=== PATIENT | male | born 1985 | race African-American/Black ===

== ENCOUNTER 2019-04-05 12:54 | Emergency (ER) | payer OTHER ==
[~2019-04-05] VITALS: Ht 190.5 cm; Wt 220.9 kg
[2019-04-05 13:13] VITALS: BP 147/92; Ht 190.5 cm; Wt 220.9 kg
== END 2019-04-05 16:32 | disposition home or self-care (01) ==
LOC: ED 12:54
DX: L03.116 Cellulitis of left lower limb (principal)

== ENCOUNTER 2019-10-08 20:15 | Inpatient (IN) | payer OTHER, SELFPAY ==
[~2019-10-08] VITALS: Ht 188 cm; Wt 171.5 kg
[2019-10-08 20:26] VITALS: Ht 188 cm; Wt 171.5 kg
[2019-10-08 21:09] LABS: CALCIUM 7.6 mg/dL (8.5-10.1); CARBON DIOXIDE 31.2 mmol/L (21-32); CHLORIDE SERUM 97 mmol/L (98-107); CREATININE SERUM 1.3 mg/dL (0.7-1.3); GFR1 > 60 mL/min; GLUCOSE SERUM 92 mg/dL (74-106); POTASSIUM SERUM 3.2 mmol/L (3.5-5.1); SODIUM SERUM 134 mmol/L (136-145)
[2019-10-08 21:14] LABS: ALKALINE PHOSPHATASE 25 U/L (46-116); ALT/SGPT 25 U/L (16-63); AST/SGOT 27 U/L (15-37); BILIRUBIN TOTAL 0.4 mg/dL (0.20-1.00); C REACTIVE PROTEIN 9.9 mg/dL (<=0.9); LACTIC DEHYDROGENASE (LDH) 379 U/L (100-190)
[2019-10-08 21:16] LABS: BASOPHIL % 0.3 % (0-2); PLATELET COUNT 131 x10^3mcL (130-400); RED CELL DISTRIBUTION WIDTH 14.1 % (11.5-14.5)
[2019-10-09 01:05] LABS: UA SPECIFIC GRAVITY >=1.030 (1.005-1.035); microscopic required? YES; urine erythrocyte NEGATIVE (NEGATIVE)
[2019-10-09 02:10] VITALS: BP 133/75
[2019-10-09 03:09] LABS: MAGNESIUM 1.9 mg/dL (1.8-2.4)
[2019-10-09 05:38] VITALS: BP 135/78
[2019-10-09 07:53] LABS: CALCIUM 7.8 mg/dL (8.5-10.1); CARBON DIOXIDE 30.7 mmol/L (21-32); CHLORIDE SERUM 96 mmol/L (98-107); GFR1 > 60 mL/min; GLUCOSE SERUM 132 mg/dL (74-106); PHOSPHOROUS 3.5 mg/dL (2.5-4.9); POTASSIUM SERUM 4.1 mmol/L (3.5-5.1); SODIUM SERUM 133 mmol/L (136-145)
[2019-10-09 07:58] LABS: BASOPHIL % 0.2 % (0-2); PLATELET COUNT 134 x10^3mcL (130-400)
[2019-10-09 09:31] VITALS: BP 123/80
[2019-10-09 13:06] VITALS: BP 118/76
[2019-10-09 17:45] VITALS: BP 114/75
[2019-10-09 20:48] VITALS: BP 122/69
[2019-10-10 06:06] VITALS: BP 140/77
[2019-10-10 07:16] LABS: PLATELET COUNT 164 x10^3mcL (130-400)
[2019-10-10 07:23] LABS: BASOPHIL % 0 % (0-2)
[2019-10-10 07:30] LABS: CALCIUM 8.2 mg/dL (8.5-10.1); CARBON DIOXIDE 34.6 mmol/L (21-32); CHLORIDE SERUM 99 mmol/L (98-107); GFR1 > 60 mL/min; GLUCOSE SERUM 115 mg/dL (74-106); MAGNESIUM 2.4 mg/dL (1.8-2.4); PHOSPHOROUS 2.3 mg/dL (2.5-4.9); POTASSIUM SERUM 3.8 mmol/L (3.5-5.1); SODIUM SERUM 139 mmol/L (136-145)
[2019-10-10 09:23] VITALS: BP 129/74
[2019-10-10 14:05] VITALS: BP 122/69
[2019-10-10 17:27] VITALS: BP 105/67
[2019-10-10 21:15] VITALS: BP 129/79
[2019-10-10 22:22] LABS: ALKALINE PHOSPHATASE 24 U/L (46-116); ALT/SGPT 21 U/L (16-63); AST/SGOT 16 U/L (15-37); CARBON DIOXIDE 35.8 mmol/L (21-32); CHLORIDE SERUM 98 mmol/L (98-107); CREATININE SERUM 1.1 mg/dL (0.7-1.3); GFR1 > 60 mL/min; GLUCOSE SERUM 118 mg/dL (74-106); POTASSIUM SERUM 4.3 mmol/L (3.5-5.1); SODIUM SERUM 137 mmol/L (136-145); TOTAL PROTEIN, SERUM 7.9 g/dL (6.4-8.2)
[2019-10-10 22:26] LABS: ALBUMIN 2.6 g/dL (3.4-5.0)
[2019-10-11 05:08] VITALS: BP 122/47
[2019-10-11 07:22] LABS: CALCIUM 8.2 mg/dL (8.5-10.1); CARBON DIOXIDE 33.6 mmol/L (21-32); CHLORIDE SERUM 98 mmol/L (98-107); CREATININE SERUM 1.1 mg/dL (0.7-1.3); GFR1 > 60 mL/min; GLUCOSE SERUM 113 mg/dL (74-106); MAGNESIUM 2.4 mg/dL (1.8-2.4); PHOSPHOROUS 2.2 mg/dL (2.5-4.9); SODIUM SERUM 137 mmol/L (136-145)
[2019-10-11 07:30] LABS: PLATELET COUNT 167 x10^3mcL (130-400); RED CELL DISTRIBUTION WIDTH 13.9 % (11.5-14.5)
[2019-10-11 08:09] LABS: BASOPHIL % 0 % (0-2)
[2019-10-11 08:59] VITALS: BP 138/66
[2019-10-11 10:01] LABS: ALT/SGPT 22 U/L (16-63); AST/SGOT 23 U/L (15-37)
[2019-10-11 12:40] VITALS: BP 151/79
[2019-10-11 17:26] VITALS: BP 115/59
[2019-10-11 21:10] VITALS: BP 117/64
[2019-10-12 06:00] VITALS: BP 94/64
[2019-10-12 07:15] LABS: PLATELET COUNT 175 x10^3mcL (130-400); RED CELL DISTRIBUTION WIDTH 14.5 % (11.5-14.5)
[2019-10-12 08:13] LABS: ALKALINE PHOSPHATASE 28 U/L (46-116); ALT/SGPT 22 U/L (16-63); AST/SGOT 24 U/L (15-37); BILIRUBIN DIRECT 0.14 mg/dL (0.0-0.2); BILIRUBIN TOTAL 0.3 mg/dL (0.20-1.00); CALCIUM 8.2 mg/dL (8.5-10.1); CARBON DIOXIDE 36.3 mmol/L (21-32); CHLORIDE SERUM 98 mmol/L (98-107); CREATININE SERUM 0.9 mg/dL (0.7-1.3); GFR1 > 60 mL/min; GLUCOSE SERUM 118 mg/dL (74-106); MAGNESIUM 2.4 mg/dL (1.8-2.4); PHOSPHOROUS 3.1 mg/dL (2.5-4.9); POTASSIUM SERUM 4.3 mmol/L (3.5-5.1); SODIUM SERUM 137 mmol/L (136-145); TOTAL PROTEIN, SERUM 7.7 g/dL (6.4-8.2)
[2019-10-12 08:28] LABS: ALBUMIN 2.3 g/dL (3.4-5.0)
[2019-10-12 08:30] VITALS: BP 121/66
[2019-10-12 12:10] VITALS: BP 130/84
[2019-10-12 12:19] LABS: SEGMENTED NEUTROPHILS 83 % (37-75)
[2019-10-12 12:20] LABS: BAND NEUTROPHIL 3 % (0-10); MONOCYTE 5 % (0-7); rbc morphology (normal/abnorm) ABNORMAL (NORMAL)
[2019-10-12 15:57] VITALS: BP 124/58
[2019-10-12 20:48] VITALS: BP 126/88
[2019-10-13 05:14] VITALS: BP 119/60
[2019-10-13 08:20] LABS: ALKALINE PHOSPHATASE 30 U/L (46-116); ALT/SGPT 21 U/L (16-63); AST/SGOT 21 U/L (15-37); BILIRUBIN DIRECT 0.13 mg/dL (0.0-0.2); BILIRUBIN TOTAL 0.3 mg/dL (0.20-1.00); CALCIUM 8.3 mg/dL (8.5-10.1); CARBON DIOXIDE 36.6 mmol/L (21-32); CHLORIDE SERUM 100 mmol/L (98-107); CREATININE SERUM 0.9 mg/dL (0.7-1.3); GFR1 > 60 mL/min; GLUCOSE SERUM 115 mg/dL (74-106); POTASSIUM SERUM 4.4 mmol/L (3.5-5.1); SODIUM SERUM 139 mmol/L (136-145); TOTAL PROTEIN, SERUM 7.9 g/dL (6.4-8.2)
[2019-10-13 08:28] LABS: ALBUMIN 2.4 g/dL (3.4-5.0)
[2019-10-13 08:37] LABS: BASOPHIL % 1.7 % (0-2); PLATELET COUNT 175 x10^3mcL (130-400)
[2019-10-13 09:31] VITALS: BP 110/58
[2019-10-13 13:51] VITALS: BP 115/53
[2019-10-13 17:39] VITALS: BP 100/58
[2019-10-13 21:44] VITALS: BP 115/50
[2019-10-14 06:19] VITALS: BP 108/64
[2019-10-14 07:07] LABS: PLATELET COUNT 232 x10^3mcL (130-400); RED CELL DISTRIBUTION WIDTH 14.4 % (11.5-14.5)
[2019-10-14 07:10] LABS: ALBUMIN 2.5 g/dL (3.4-5.0); BILIRUBIN DIRECT 0.11 mg/dL (0.0-0.2); BILIRUBIN TOTAL 0.3 mg/dL (0.20-1.00); TOTAL PROTEIN, SERUM 7.7 g/dL (6.4-8.2)
[2019-10-14 07:15] LABS: BASOPHIL % 0 % (0-2)
[2019-10-14 07:19] LABS: CALCIUM 8.5 mg/dL (8.5-10.1); CARBON DIOXIDE 37.2 mmol/L (21-32); CHLORIDE SERUM 103 mmol/L (98-107); CREATININE SERUM 0.9 mg/dL (0.7-1.3); GFR1 > 60 mL/min; GLUCOSE SERUM 117 mg/dL (74-106); POTASSIUM SERUM 4.1 mmol/L (3.5-5.1); SODIUM SERUM 142 mmol/L (136-145)
[2019-10-14 09:07] VITALS: BP 112/67
[2019-10-14 13:07] VITALS: BP 126/78
[2019-10-14 18:16] VITALS: BP 127/66
[2019-10-14 21:10] VITALS: BP 117/69
[2019-10-15 05:41] VITALS: BP 103/53
[2019-10-15 07:12] LABS: BASOPHIL % 0.3 % (0-2); PLATELET COUNT 261 x10^3mcL (130-400); RED CELL DISTRIBUTION WIDTH 14.5 % (11.5-14.5)
[2019-10-15 07:40] LABS: CALCIUM 8.6 mg/dL (8.5-10.1); CARBON DIOXIDE 38.1 mmol/L (21-32); CHLORIDE SERUM 101 mmol/L (98-107); CREATININE SERUM 0.9 mg/dL (0.7-1.3); GFR1 > 60 mL/min; GLUCOSE SERUM 100 mg/dL (74-106); POTASSIUM SERUM 3.9 mmol/L (3.5-5.1); SODIUM SERUM 143 mmol/L (136-145)
[2019-10-15 08:13] LABS: BILIRUBIN DIRECT 0.11 mg/dL (0.0-0.2); BILIRUBIN TOTAL 0.3 mg/dL (0.20-1.00)
[2019-10-15 08:17] LABS: ALBUMIN 2.6 g/dL (3.4-5.0)
[2019-10-15 09:17] VITALS: BP 140/82
[2019-10-15 18:32] VITALS: BP 127/61
[2019-10-15 20:35] VITALS: BP 142/68
[2019-10-16 06:15] VITALS: BP 128/67
[2019-10-16 06:54] LABS: CALCIUM 8.5 mg/dL (8.5-10.1); CHLORIDE SERUM 103 mmol/L (98-107); GFR1 > 60 mL/min; GLUCOSE SERUM 103 mg/dL (74-106); POTASSIUM SERUM 4.1 mmol/L (3.5-5.1); SODIUM SERUM 145 mmol/L (136-145)
[2019-10-16 06:59] LABS: CARBON DIOXIDE 41.2 mmol/L (21-32)
[2019-10-16 07:08] LABS: BASOPHIL % 0.2 % (0-2); PLATELET COUNT 262 x10^3mcL (130-400)
[2019-10-16 07:25] LABS: RED CELL DISTRIBUTION WIDTH 14.6 % (11.5-14.5)
[2019-10-16 09:13] VITALS: BP 139/67
[2019-10-16 12:00] VITALS: BP 153/53
[2019-10-16 16:28] VITALS: BP 129/79
[2019-10-16 20:08] VITALS: BP 126/73
[2019-10-17 04:15] VITALS: BP 117/69
[2019-10-17 07:40] LABS: BASOPHIL % 0.9 % (0-2); PLATELET COUNT 263 x10^3mcL (130-400); RED CELL DISTRIBUTION WIDTH 14.3 % (11.5-14.5)
[2019-10-17 08:21] VITALS: BP 109/73
[2019-10-17 08:23] LABS: C REACTIVE PROTEIN 2.7 mg/dL (<=0.9); CHLORIDE SERUM 102 mmol/L (98-107); GFR1 > 60 mL/min; GLUCOSE SERUM 98 mg/dL (74-106); POTASSIUM SERUM 3.9 mmol/L (3.5-5.1); SODIUM SERUM 144 mmol/L (136-145)
[2019-10-17 08:35] LABS: CARBON DIOXIDE 40.3 mmol/L (21-32)
[2019-10-17 13:00] VITALS: BP 106/66
[2019-10-17 17:40] VITALS: BP 115/69
[2019-10-17 20:59] VITALS: BP 112/76
[2019-10-18 04:43] VITALS: BP 115/66
[2019-10-18 06:46] LABS: BASOPHIL % 0.2 % (0-2); PLATELET COUNT 266 x10^3mcL (130-400); RED CELL DISTRIBUTION WIDTH 14.3 % (11.5-14.5)
[2019-10-18 07:10] LABS: CALCIUM 8.5 mg/dL (8.5-10.1); CARBON DIOXIDE 39.7 mmol/L (21-32); CHLORIDE SERUM 101 mmol/L (98-107); GFR1 > 60 mL/min; GLUCOSE SERUM 93 mg/dL (74-106); MAGNESIUM 2.4 mg/dL (1.8-2.4); POTASSIUM SERUM 4.1 mmol/L (3.5-5.1); SODIUM SERUM 142 mmol/L (136-145)
[2019-10-18 08:28] VITALS: BP 95/40
[2019-10-18 13:30] VITALS: BP 117/59
[2019-10-18 14:30] VITALS: BP 110/57
[2019-10-18 22:06] VITALS: BP 133/60
[2019-10-19 06:57] VITALS: BP 104/64
[2019-10-19 08:39] VITALS: BP 110/62
[2019-10-19 12:33] VITALS: BP 114/43
[2019-10-19 16:47] VITALS: BP 112/49
[2019-10-19 20:56] VITALS: BP 103/48
[2019-10-20 06:39] VITALS: BP 101/49
[2019-10-20 06:44] LABS: BASOPHIL % 0.3 % (0-2); PLATELET COUNT 244 x10^3mcL (130-400); RED CELL DISTRIBUTION WIDTH 14.2 % (11.5-14.5)
[2019-10-20 06:53] LABS: C REACTIVE PROTEIN 0.9 mg/dL (<=0.9); CALCIUM 8.5 mg/dL (8.5-10.1); CARBON DIOXIDE 38.9 mmol/L (21-32); CHLORIDE SERUM 101 mmol/L (98-107); CREATININE SERUM 1.1 mg/dL (0.7-1.3); GFR1 > 60 mL/min; GLUCOSE SERUM 92 mg/dL (74-106); POTASSIUM SERUM 4.4 mmol/L (3.5-5.1); SODIUM SERUM 141 mmol/L (136-145)
[2019-10-20 09:38] VITALS: BP 99/49
[2019-10-20 13:15] VITALS: BP 124/79
[2019-10-20 17:30] VITALS: BP 119/75
[2019-10-20 21:01] VITALS: BP 119/66
[2019-10-21 05:18] VITALS: BP 145/69
[2019-10-21 06:27] LABS: BASOPHIL % 0.2 % (0-2); PLATELET COUNT 235 x10^3mcL (130-400); RED CELL DISTRIBUTION WIDTH 14.5 % (11.5-14.5)
[2019-10-21 06:43] LABS: C REACTIVE PROTEIN 0.7 mg/dL (<=0.9); CALCIUM 8.8 mg/dL (8.5-10.1); CARBON DIOXIDE 39.6 mmol/L (21-32); CHLORIDE SERUM 100 mmol/L (98-107); CREATININE SERUM 1.2 mg/dL (0.7-1.3); GFR1 > 60 mL/min; GLUCOSE SERUM 98 mg/dL (74-106); MAGNESIUM 2.3 mg/dL (1.8-2.4); POTASSIUM SERUM 4.6 mmol/L (3.5-5.1); SODIUM SERUM 139 mmol/L (136-145)
[2019-10-21 08:16] VITALS: BP 112/56
[2019-10-21 12:44] VITALS: BP 104/57
[2019-10-21 16:53] VITALS: BP 103/58
[2019-10-21 19:16] VITALS: BP 127/65
[2019-10-22 04:48] VITALS: BP 135/50
[2019-10-22 06:30] LABS: BASOPHIL % 0.1 % (0-2); PLATELET COUNT 219 x10^3mcL (130-400); RED CELL DISTRIBUTION WIDTH 13.3 % (11.5-14.5)
[2019-10-22 06:45] LABS: C REACTIVE PROTEIN 0.4 mg/dL (<=0.9); CALCIUM 8.9 mg/dL (8.5-10.1); CARBON DIOXIDE 38.9 mmol/L (21-32); CHLORIDE SERUM 98 mmol/L (98-107); GFR1 > 60 mL/min; GLUCOSE SERUM 100 mg/dL (74-106); MAGNESIUM 2.2 mg/dL (1.8-2.4); PHOSPHOROUS 5.2 mg/dL (2.5-4.9); POTASSIUM SERUM 4.3 mmol/L (3.5-5.1); SODIUM SERUM 138 mmol/L (136-145)
[2019-10-22 09:08] VITALS: BP 97/48
[2019-10-22 09:33] LABS: ERYTHROCYTE SED RATE 29 mm/hr (0-15)
[2019-10-22 13:10] VITALS: BP 105/68
[2019-10-22 17:26] VITALS: BP 116/66
[2019-10-22 20:45] VITALS: BP 122/99
[2019-10-23 05:13] VITALS: BP 95/43
[2019-10-23 07:59] LABS: BASOPHIL % 0.3 % (0-2); PLATELET COUNT 202 x10^3mcL (130-400)
[2019-10-23 08:23] LABS: RED CELL DISTRIBUTION WIDTH 14.7 % (11.5-14.5)
[2019-10-23 08:37] LABS: ALKALINE PHOSPHATASE 27 U/L (46-116); ALT/SGPT 62 U/L (16-63); AST/SGOT 17 U/L (15-37); BILIRUBIN TOTAL 0.3 mg/dL (0.20-1.00); CALCIUM 8.4 mg/dL (8.5-10.1); CARBON DIOXIDE 36.5 mmol/L (21-32); CHLORIDE SERUM 100 mmol/L (98-107); CREATININE SERUM 1.1 mg/dL (0.7-1.3); GFR1 > 60 mL/min; GLUCOSE SERUM 102 mg/dL (74-106); MAGNESIUM 2.2 mg/dL (1.8-2.4); PHOSPHOROUS 5.1 mg/dL (2.5-4.9); POTASSIUM SERUM 4.1 mmol/L (3.5-5.1); SODIUM SERUM 138 mmol/L (136-145); TOTAL PROTEIN, SERUM 7.3 g/dL (6.4-8.2)
[2019-10-23 08:42] LABS: ALBUMIN 2.8 g/dL (3.4-5.0)
[2019-10-23 08:56] VITALS: BP 102/65
[2019-10-23 12:55] VITALS: BP 140/66
[2019-10-23 16:31] VITALS: BP 120/63
[2019-10-23 21:00] VITALS: BP 109/55
[2019-10-24 05:20] VITALS: BP 104/55
[2019-10-24 08:41] LABS: CALCIUM 8.9 mg/dL (8.5-10.1); CARBON DIOXIDE 35.8 mmol/L (21-32); CHLORIDE SERUM 100 mmol/L (98-107); CREATININE SERUM 0.9 mg/dL (0.7-1.3); GFR1 > 60 mL/min; GLUCOSE SERUM 106 mg/dL (74-106); MAGNESIUM 2.3 mg/dL (1.8-2.4); POTASSIUM SERUM 4.4 mmol/L (3.5-5.1); SODIUM SERUM 136 mmol/L (136-145)
[2019-10-24 08:44] VITALS: BP 117/72
[2019-10-24 09:03] LABS: BASOPHIL % 0.4 % (0-2); PLATELET COUNT 174 x10^3mcL (130-400)
[2019-10-24 10:00] LABS: RED CELL DISTRIBUTION WIDTH 14.6 % (11.5-14.5)
[2019-10-24 12:53] VITALS: BP 106/62
[2019-10-24 17:01] VITALS: BP 103/52
[2019-10-24 21:11] VITALS: BP 113/68
[2019-10-25 04:55] VITALS: BP 129/76
[2019-10-25 07:20] LABS: BASOPHIL % 0.3 % (0-2); PLATELET COUNT 185 x10^3mcL (130-400)
[2019-10-25 07:48] LABS: RED CELL DISTRIBUTION WIDTH 14.6 % (11.5-14.5)
[2019-10-25 08:02] LABS: CALCIUM 8.8 mg/dL (8.5-10.1); CARBON DIOXIDE 37.3 mmol/L (21-32); CHLORIDE SERUM 100 mmol/L (98-107); GFR1 > 60 mL/min; GLUCOSE SERUM 94 mg/dL (74-106); MAGNESIUM 2.1 mg/dL (1.8-2.4); PHOSPHOROUS 4.6 mg/dL (2.5-4.9); POTASSIUM SERUM 4.3 mmol/L (3.5-5.1); SODIUM SERUM 138 mmol/L (136-145)
[2019-10-25 08:36] VITALS: BP 129/103
[2019-10-25 12:35] VITALS: BP 119/58
[2019-10-25] MEDS ORDERED: METFORMIN HCL500 M4 PO (13:57)
[2019-10-25] MEDS ORDERED: VENTOLIN H0.09 MG/A1 INH (13:57)
[2019-10-25 14:04] VITALS: BP 119/58
[2019-10-25 17:27] VITALS: BP 101/74
[2019-10-25 20:00] VITALS: BP 137/79
== END 2019-10-25 21:46 | disposition home or self-care (01) | DRG 720 ==
LOC: ED 20:15 → DU 23:49
PROVIDERS: Internal Medicine; Specialist; Student in an Organized Health Care Education/Training Program; ADMIT Family Medicine; ATTEND Family Medicine
PROC: 30233K1 Transfusion of Nonautologous Frozen Plasma into Peripheral Vein, Percutaneous Approach (ICD-10-PCS; principal; 2019-10-12)
PROC: XW033E5 Introduction of Remdesivir Anti-infective into Peripheral Vein, Percutaneous Approach, New Technology Group 5 (ICD-10-PCS; 2019-10-12)
PROC: XW13325 Transfusion of Convalescent Plasma (Nonautologous) into Peripheral Vein, Percutaneous Approach, New Technology Group 5 (ICD-10-PCS; 2019-10-12)
DX: A41.89 Other specified sepsis (principal); U07.1 COVID-19; J96.01 Acute respiratory failure with hypoxia; J12.89 Other viral pneumonia; E87.6 Hypokalemia; E83.51 Hypocalcemia; E44.1 Mild protein-calorie malnutrition; D72.829 Elevated white blood cell count, unspecified; E87.1 Hypo-osmolality and hyponatremia; G47.33 Obstructive sleep apnea (adult) (pediatric); I49.8 Other specified cardiac arrhythmias; E66.01 Morbid (severe) obesity due to excess calories; Z68.42 Body mass index [BMI] 45.0-49.9, adult; Z91.19 Patient's noncompliance with other medical treatment and regimen
CPT/HCPCS: 36600; 82962; 83880; 87804; 99406; G0378; J0456; J0696; J1100; J1644; J1940; J3535; J7030; J7040; J7050; J7060; J8540; Q0092; U0003-CS